=== PATIENT | male | born 1930 | race Caucasian/White ===

== ENCOUNTER → 2017-04-23 | Outpatient (CLI) | payer MEDICARE, OTHER ==
[~2017-04-23] MED LIST: ASPIRIN325 PO; CALCIUM 600 +1 EAC1 PO; CLARITIN10 MG PO; FENOFIBRATE160 MG PO; LEVOTHYROXIN0.025 MG PO; NIASPAN 500 MG500 M1 PO; OMEGA-3 FISH O1 EAC4 PO; PROAIR HFA8.5 GM INH; SPIRIVA INH; TOPROL XL100 MG PO; VITAMIN E400 UNIT PO; WELCHOL 625 MG625 M1 PO
--- NOTE | 2017-05-06 23:50 | ONC ---
[place] [address] RADIATION ONCOLOGY NOTE Name: OMAYRA CHEATHAM Room: [facility]#: [id number] Admission: 04/23/17 Attend Phys: Rhett Queen MD Discharge: Date of : 30 Report #: [id number] THIS REPORT FOR: //name// CC: Joseph Davidson MD DATE OF SERVICE: 04/23/2017 [facility] REFERRING PHYSICIANS: Include Joseph Alvarez DO; Dominic Guillen MD; Veronique Kat MD; Dr. Tae Busby MD and Dragan Martínez MD from Dermatology. PRIMARY SITE AND HISTOPATHOLOGY: The patient received definitive radiation therapy for a [id number] non-small cell lung cancer that involved the right lung. The radiation treatments were completed on 03/03/2015. He received salvage radiation therapy, consisting of stereotactic radiationtreatments from Dr. Garnica that was completed on 01/27/2017. INTERVAL NOTE: Overall, the patient feels stable. He felt like he is eating well. He takes gabapentin for right rib pain. In terms of his breathing, he uses albuterol as well as a Spiriva inhaler. MEDICATIONS: Include 50 mcg of levothyroxine per day. He also takes calcium supplement, fish oil, Niaspan, loratadine, metoprolol, fenofibrate, aspirin, Welchol, albuterol, prednisone, and vitamin D. SOCIAL HISTORY: The patient is retired from the [employer]. Cigarettes- he smoked up to 4 packs per day until he was about 60 years of age. He smoked about 40-50 years. Prior to that time, he was exposed to asbestos when he was in the [employer]. REVIEW OF SYSTEMS: RESPIRATORY: Breathing was stable. He uses Spiriva inhaler as needed. He was not short of breath during his followup. MUSCULOSKELETAL: He uses a cane to help with ambulation. His ambulation is stable. PHYSICAL EXAMINATION: VITAL SIGNS: The patient weighed 220.8 pounds on 04/23/2017; 222.6 pounds on 12/06/2017, on 04/23/2017, blood pressure was 114/66, pulse 75, respirations 22. LYMPH NODES: He had no palpable cervical or supraclavicular [place] [address] RADIATION ONCOLOGY NOTE Name: OMAYRA CHEATHAM Room: [facility]#: [id number] Admission: 04/23/17 Attend Phys: Rhett Queen MD Discharge: Date of : 30 Report #: [id number] HEART: Had a regular rate and rhythm without murmur. LUNGS: were clear to auscultation. ABDOMEN: Soft and not tender. LABORATORY DATA: From 02/24/2017, BUN 27, creatinine 1.3. RADIOLOGIC DATA: The patient had a PET CT scan from 04/14/2017 and that revealed post-therapeutic changes in the right lower lobe with persistent, but improved hypermetabolic activity of more mass-like consolidation in the right lower lobe. Residual uptake was probably secondary to post-radiation inflammation. An active tumor is also a consideration. Short-term followup with PET CT in 3 months was recommended. There was no hypermetabolic thoracic adenopathy or distant metastatic disease. There were extensive bilateral calcified pleural plaques consistent with prior asbestos exposure. He had cholelithiasis. He had nonobstructing right renal calculus. He had coronary artery calcifications. ASSESSMENT AND PLAN: 1. Recurrent lung cancer- The patient appears to have had a good response to his stereotactic radiation treatments that were administered by Dr. Garnica. A PET CT will be ordered in about 3 months and he was asked to schedule a followup appointment to see me afterwards. 2. Coronary artery calcifications- He will be referred to his hydraulic press operator, Dr. Guillen to manage that issue. 3. Hypothyroidism- The patient takes levothyroxine that is managed by his referring physicians. 4. Hyperlipidemia- The patient takes Welchol and that is managed by his referring physicians. Thank you for allowing me to participate in the care of this patient. <ELECTRONICALLY SIGNED> By: Rhett Queen MD 05/06/17 [id number] [id number] Queen MD /nt
== END ==
LOC: M.RTH 01:38
DX: C34.91 Malignant neoplasm of unspecified part of right bronchus or lung (principal); I25.10 Atherosclerotic heart disease of native coronary artery without angina pectoris; E03.9 Hypothyroidism, unspecified; E78.5 Hyperlipidemia, unspecified; Z87.891 Personal history of nicotine dependence

== ENCOUNTER → 2017-07-11 | Outpatient (CLI) | payer MEDICARE, OTHER ==
--- NOTE | 2017-07-20 23:53 | ONC ---
[place] [address] RADIATION ONCOLOGY NOTE Name: OMAYRA CHEATHAM Room: [facility]#: [id number] Admission: 07/11/17 Attend Phys: Rhett Queen MD Discharge: Date of : 30 Report #: [id number] THIS REPORT FOR: //name// CC: Joseph Sandhu MD DATE OF SERVICE: 07/11/2017 REFERRING PHYSICIANS: Joseph Alvarez DO; Veronique Kat MD; Dragan Martínez MD, Dermatology; Tae Busby MD; Dominic Guillen DO. [facility] phone is [phone]. PRIMARY SITE AND HISTOPATHOLOGY: The patient received definitive radiation therapy for a [id number] non-small cell lung cancer that involved the right lung. The radiation treatments were completed on 03/03/2015. He received salvage radiation therapy consisting of stereotactic radiation treatments from Dr. Garnica that was completed on 01/27/2017. INTERVAL NOTE: The patient feels stable. He is eating well. His breathing is stable. He uses albuterol as well as the Spiriva inhaler. MEDICATIONS: Includes 50 mcg of levothyroxine per day. He also takes calcium supplement, fish oil, Niaspan, loratadine, metoprolol, fenofibrate, aspirin, WelChol, albuterol, prednisone, and vitamin D. SOCIAL HISTORY: The patient is retired from the [employer]. Cigarettes: He smoked up to 4 packs per day until he was about 60 years of age. He smoked about 40-50 years. Prior to that time, he said he was exposed to asbestos when he was in the [employer]. REVIEW OF SYSTEMS: RESPIRATORY: Breathing was stable. He uses Spiriva inhaler as needed. He was not short of breath during his followup appointment. MUSCULOSKELETAL: He uses a cane to help with ambulation. His ambulation is stable. PHYSICAL EXAMINATION: VITAL SIGNS: The patient weighed 217.4 pounds on 07/11/2017 and he was 220.8 pounds on 04/23/2017. On 07/11/2017, blood pressure was 119/66, pulse 80, respirations 24, oxygen saturation was 92%. LYMPH NODES: He had no palpable cervical or supr[place] [address] RADIATION ONCOLOGY NOTE Name: OMAYRA CHEATHAM Room: [facility]#: [id number] Admission: 07/11/17 Attend Phys: Rhett Queen MD Discharge: Date of : 30 Report #: [id number] HEART: Had a regular rate and rhythm without murmur. LUNGS: were clear to auscultation. ABDOMEN: Soft, nontender. LABORATORY DATA: From 07/08/2017, glucose was about 111. RADIOLOGICAL DATA: A PET scan from 07/08/2017 showed increase in hypermetabolic activity in the area of the consolidation within the right lung corresponding to the patient's previously treated lung cancer, which was consistent with residual recurrent tumor. There was also an increase in the size of his right pleural effusion, which had some hypermetabolic activity, which was suggestive of a malignant effusion. ASSESSMENT AND PLAN: 1. 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 Busby on 07/17/2017. I told him that, at this point, Dr. Busby will probably assess him for possible systemic therapy. Since he has already had multiple radiation treatments, so radiation therapy probably will not be too helpful at this point. I spoke to Dr. Busby today. He is aware of the PET scan findings and the patient was offered a followup appointment to see me in about 6 weeks. 2. Hypothyroidism- The patient takes levothyroxine and that is managed by his referring physicians. 3. Hyperlipidemia- The patient takes WelChol and that is managed by his referring physicians. Thank you for allowing me to participate in the care of this patient. <ELECTRONICALLY SIGNED> By: Rhett Queen MD 07/20/17 [id number] [id number] Queen MD /nt
== END ==
LOC: M.RTH 01:36
DX: E03.9 Hypothyroidism, unspecified (principal); E78.5 Hyperlipidemia, unspecified